=== PATIENT | male | born 1965 | race Caucasian/White ===

== ENCOUNTER 2017-10-14 01:21 | Emergency (ER) | payer OTHER ==
[~2017-10-14] VITALS: Ht 162.6 cm; Wt 99.8 kg
[~2017-10-14 01:21] MED LIST: ROBITUSSIN W/CO10 ML PO; ZITHROMAX Z-PA250 M1 PO
--- NOTE | 2017-10-14 02:33 | ED DYSPNEA/ASTHMA COMPLAINT ---
History of Present Illness General Chief Complaint: General Adult Stated Complaint: "A HEAVY COUGH" Source: patient Exam Limitations: no limitations Vital Signs & Intake/Output Vital Signs & Intake/Output Vital Signs Date Time Temp Pulse Resp B/P B/P Pulse O2 O2 Flow FiO2 Mean Ox Delivery Rate 10/14 0221 98.4 95 20 146/96 96 Room Air Room Air Allergies Coded Allergies: No Known Allergies (11/06/15) Reconcile Medications Albuterol Sulfate (Ventolin Hfa) 90 MCG HFA.AER.AD 2 PUF INH Q4-6 PRN PRN wheeze Amoxicillin/Potassium Clav (Augmentin 875-125 Tablet) 875 MG-125 MG TABLET 1 TAB PO BID bronchitis Azithromycin (Zithromax Z-Dmitry) 250 MG CAP 1 DP PO AD BRONCHITIS/SINUSES 2 the first day followed by 1 for days 2-5 Prednisone 50 MG TABLET 1 TAB PO DAILY wheezing/cough/rhonchi Promethazine/Phenyleph/Codeine (Promethazine Vc-Codeine Syrup) 6.25 MG-5 MG-10 MG/5 ML SYRUP 5-10 ML PO Q6 cough onehundred twenty cc... [id number] Robitussin AC (Guaifenesin-Codeine Syrup) 10 ML UDC 5 ML PO Q6P PRN COUGH Triage Note: 51YO MALE TO TRIAGE W/CO "HEAVY COUGH" SINCE YESTERDAY. STATES HE "GETS INTO COUGHING FITS" HX FLU 3 WEEKS AGO Triage Nurses Notes Reviewed? yes Onset: Gradual Duration: day(s): Timing: recent history Severity: mild, moderate Activities at Onset: none Prior Episodes/Possible Cause: occasional episodes Modifying Factors: Worsens With: other (worse w/ cough). Associated Symptoms: cough HPI: 51 yo gentleman presents with cough w/ yellow phlegm, for the past few days, but worse today. "I could so much it really hurts my body." No fever, chills, abdominal pain, dizziness. He is otherwise well. Past History Travel History Traveled to [place] past 21 day No Medical History Any Pertinent Medical History? see below for history Neurological: NONE EENT: NONE Cardiovascular: hypertension Respiratory: NONE Gastrointestinal: NONE Hepatic: NONE Renal: NONE Musculoskeletal: NONE Psychiatric: NONE Endocrine: NONE Surgical History Surgical History: non-contributory Psychosocial History What is your primary language Uzbek Tobacco Use: Never used Family History Hx Contributory? No Review of Systems Review of Systems Constitutional: Reports: no symptoms. EENTM: Reports: no symptoms. Respiratory: Reports: no symptoms. Cardiovascular: Reports: no symptoms. GI: Reports: no symptoms. Genitourinary: Reports: no symptoms. Musculoskeletal: Reports: no symptoms. Skin: Reports: no symptoms. Neurological/Psychological: Reports: no symptoms. Hematologic/Endocrine: Reports: no symptoms. Immunologic/Allergic: Reports: no symptoms. All Other Systems: Reviewed and Negative Physical Exam Physical Exam General Appearance: well developed/nourished, no apparent distress Head: atraumatic, normal appearance Eyes: Bilateral: normal appearance. Ears, Nose, Throat: normal pharynx, normal ENT inspection Neck: normal inspection, supple, full range of motion Respiratory: rhonchi, symmetrical mild rhonchi Cardiovascular: regular rate/rhythm Gastrointestinal: normal bowel sounds, soft, non-tender, no organomegaly Extremities: normal inspection, normal capillary refill, normal range of motion, no edema Neurologic/Psych: no motor/sensory deficits, awake, alert, oriented x 3 Skin: intact, normal color, warm/dry Core Measures ACS in differential dx? No CVA/TIA Diagnosis No Sepsis Present: No Sepsis Focused Exam Completed? No Progress Differential Diagnosis: asthma, bronchitis vs other. Plan of Care: abx/steroids/albuterol ... close follow up advised. Initial ED EKG: none Departure Departure Disposition: HOME OR SELF CARE Condition: Stable Clinical Impression Primary Impression: Bronchitis Referrals: Unknown (PCP/Family) Departure Forms: Customer Survey General Discharge Information Prescriptions: Current Visit Scripts Amoxicillin/Potassium Clav (Augmentin 875-125 Tablet) 1 TAB PO BID #20 TAB Prednisone 1 TAB PO DAILY #5 TAB Albuterol Sulfate (Ventolin Hfa) 2 PUF INH Q4-6 PRN PRN wheeze #1 INHAL Ref 1 Promethazine/Phenyleph/Codeine (Promethazine Vc-Codeine Syrup) 5-10 ML PO Q6 #120 ML onehundred twenty cc... [id number] Critical Care Note Critical Care Note Critical Care Time: non-applicable
[2017-10-14] MEDS ORDERED: VENTOLIN HFA18 GM INH (02:42)
[2017-10-14] MEDS ORDERED: PREDNISONE50 M1 PO (02:42)
[2017-10-14] MEDS ORDERED: AUGMENTIN 875-1 EACH PO (02:42)
[2017-10-14] MEDS ORDERED: PROMETHAZINE V118 M2 PO (02:42)
[2017-10-14 03:00] VITALS: BP 138/80
== END 2017-10-14 03:13 ==
LOC: ERH 01:21
DX: J40 Bronchitis, not specified as acute or chronic (principal)

== ENCOUNTER 2017-10-17 08:19 | Emergency (ER) | payer OTHER ==
[~2017-10-17] VITALS: Ht 162.6 cm; Wt 99.8 kg
[~2017-10-17 08:19] MED LIST changes: +AUGMENTIN 875-1 EACH PO; +PREDNISONE50 M1 PO; +PROMETHAZINE V118 M2 PO; +VENTOLIN HFA18 GM INH
--- NOTE | 2017-10-17 09:08 | RADIOLOGY REPORT ---
EXAMINATION: XR CHEST CLINICAL INFORMATION: Cough, SOB. COMPARISON: Chest 11/06/2015 TECHNIQUE: 2 views of the chest were obtained. FINDINGS: No significant abnormality is noted involving the heart, lungs, mediastinum, bony thorax or soft tissues. IMPRESSION: Unremarkable chest examination. No change from previous study.
--- NOTE | 2017-10-17 09:14 | ED INFLUENZA/URI COMPLAINT ---
History of Present Illness General Chief Complaint: General Adult Stated Complaint: SHAKEY, DX BRONCHITIS Source: patient, old records Exam Limitations: no limitations Vital Signs & Intake/Output Vital Signs & Intake/Output Vital Signs Date Time Temp Pulse Resp B/P B/P Pulse O2 O2 Flow FiO2 Mean Ox Delivery Rate 10/17 1051 93 10/17 1040 98.0 88 20 159/92 97 Room Air 10/17 0843 95 Room Air Room Air 10/17 0828 98.2 114 20 152/68 97 Room Air Allergies Coded Allergies: No Known Allergies (11/06/15) Reconcile Medications Albuterol Sulfate (Ventolin Hfa) 90 MCG HFA.AER.AD 2 PUF INH Q4-6 PRN PRN wheeze Amoxicillin/Potassium Clav (Augmentin 875-125 Tablet) 875 MG-125 MG TABLET 1 TAB PO BID bronchitis Brompheniramine/Pseudoephed/Dm (Bromfed Dm Cough Syrup) 2 MG-30 MG-10 MG/5 ML SYRUP 5-10 ML PO Q4-6 PRN PRN COUGH Ipratropium/Albuterol Sulfate (Iprat-Albut 0.5-3(2.5) MG/3 Ml) 0.5 MG-3 MG (2.5 MG BASE)/3 ML AMPUL.NEB 1 VIAL INH Q6 PRN WHEEZING Prednisone 50 MG TABLET 1 TAB PO DAILY wheezing/cough/rhonchi Promethazine/Phenyleph/Codeine (Promethazine Vc-Codeine Syrup) 6.25 MG-5 MG-10 MG/5 ML SYRUP 5-10 ML PO Q6 cough onehundred twenty cc... [id number] Triage Note: 51 YEAR OLD MALE STTAES THAT HE WAS TREATED FOR THE FLU 3 WEEKS AGO AND THEN MONDAY WAS SEEN IN ER FOR COUGH PRODUCTIVE OF YELLOW SPUTUM AND L SIDE CP. WAS DX WITH BRONCHITIS AND SENT HOME ON ABT AND COUGH MEDICINE. PT STATES THAT HE FEELS SHAKEY AND IS STILL GETTING L SIDE CP WHEN HE TAKES DEEP BREATH AND COUGHS. AFEBRILE , HR 114 AT TRIAGE. PT TO EKG [facility] Triage Nurses Notes Reviewed? yes Onset: Gradual Duration: week(s): Timing: recent history Severity: moderate HPI: 51yo male with hx of HTN presents to ED complaining of persistent URI symptoms. Patient was seen and evaluated here 4 days ago, at that time he had wheezing and was prescribed Augmentin, prednisone 50 mg, albuterol, cough medication. Patient states that these medication improved his symptoms however today he woke up feeling jittery and lightheaded. Patient states that some of his symptoms have been persistent including his cough. Cough productive of yellow sputum initially and now white sputum. Patient reports bilateral pain with his cough, no chest pain at rest. He also notes dyspnea on exertion or after he finishes his in activity. Patient works at as an [employer] has been exposed to sick patients. 3 weeks ago he had the flu and was treated with Tamiflu. The patient denies fevers, chills, abdominal pain, nausea, vomiting, diarrhea. (Annika eSthi) Past History Travel History Traveled to [place] past 21 day No Medical History Any Pertinent Medical History? see below for history Neurological: NONE EENT: NONE Cardiovascular: hypertension Respiratory: NONE Gastrointestinal: NONE Hepatic: NONE Renal: NONE Musculoskeletal: NONE Psychiatric: NONE Endocrine: NONE Surgical History Surgical History: non-contributory Psychosocial History What is your primary language Setswana Tobacco Use: Never used ETOH Use: denies use Illicit Drug Use: denies illicit drug use Family History Hx Contributory? No (Annika Sethi) Review of Systems Review of Systems Constitutional: Reports: see HPI. EENTM: Reports: see HPI. Respiratory: Reports: see HPI. Cardiovascular: Reports: no symptoms. GI: Reports: no symptoms. Genitourinary: Reports: no symptoms. Musculoskeletal: Reports: no symptoms. Skin: Reports: no symptoms. Neurological/Psychological: Reports: see HPI. Hematologic/Endocrine: Reports: no symptoms. Immunologic/Allergic: Reports: no symptoms. All Other Systems: Reviewed and Negative (Annika Sethi) Physical Exam Physical Exam General Appearance: well developed/nourished, no apparent distress, alert, awake Head: atraumatic, normal appearance Eyes: Bilateral: normal appearance. Ears, Nose, Throat: normal ENT inspection, moist mucous membrane, hearing grossly normal, Tympanic normal, pharynx normal Neck: normal inspection, supple, full range of motion Respiratory: no respiratory distress, mildly diminished breath sounds posterior lung leroy Cardiovascular: regular rate/rhythm Gastrointestinal: normal bowel sounds, soft, non-tender, no organomegaly Back: normal inspection, normal range of motion Extremities: normal inspection, normal range of motion Neurologic/Psych: awake, alert, oriented x 3 Skin: intact, normal color, warm/dry Core Measures Sepsis Present: No Sepsis Focused Exam Completed? No (Summer VILLEDA,Annika Gibbons) Progress Differential Diagnosis: influenza, pneumonia, sinusitis, bronchitis Plan of Care: Orders Procedure Date/time Status LOWER RESPIRATORY CULTURE 10/17 1017 Active TROPONIN LEVEL 10/17 827 Complete COMPREHENSIVE METABOLIC PANEL 10/17 827 Complete CBC WITHOUT DIFFERENTIAL 10/17 827 Complete EKG 10/17 826 Active Laboratory Tests 10/17/17 0903: Anion Gap 15, Estimated GFR > 60, BUN/Creatinine Ratio 24.0, Glucose 136 H, Calcium 9.8, Total Bilirubin 0.3, AST 36, ALT 80 H, Alkaline Phosphatase 67, Troponin I < 0.01, Total Protein 7.4, Albumin 4.3, Globulin 3.1, Albumin/ Globulin Ratio 1.4, CBC w Diff NO MAN DIFF REQ, RBC 5.03, MCV 89.8, MCH 29.9, MCHC 33.3, RDW 13.4, MPV 7.8, Gran % 88.4 H, Lymphocytes % 8.6 L, Monocytes % 3.0, Eosinophils % 0, Basophils % 0, Absolute Granulocytes 10.2 H, Absolute Lymphocytes 1.0 L, Absolute Monocytes 0.3, Absolute Eosinophils 0, Absolute Basophils 0 Microbiology 10/17 933 LOWER RESP: Respiratory Culture - RES 10/17 933 LOWER RESP: Gram Stain - RES Chest x-ray without signs of pneumonia. Patient has stable vital signs here, afebrile, no hypoxia. Patient ambulated without significant oxygen desaturation. Patient states he feels improvement following DuoNeb. He was prescribed a nebulizer machine to go home with. A sputum culture was sent to the lab, patient to follow up with results in 2 days. Patient's labs are within normal limits, EKG in sinus rhythm, troponin negative. He has no chest pain at rest low suspicion for acute coronary syndrome. The patient is nontoxic appearing. The patient agrees with the plan of care. The patient was discussed with Dr. Moncada who agrees with this plan. Diagnostic Imaging: Viewed by Me: Radiology Read. Discussed w/RAD: Radiology Read. CXR Impression: PATIENT: JAQUI HUTCHINSON PRESENT AGE: 51 PATIENT ACCOUNT NO: [id number] : 65 LOCATION: [facility] ORDERING PHYSICIAN: Joey Ramachandran DO SERVICE DATE: 10/17/17 EXAM TYPE: RAD - XRY-CHEST XRAY, TWO VIEWS EXAMINATION: XR CHEST CLINICAL INFORMATION: Cough, SOB. COMPARISON: Chest 11/06/2015 TECHNIQUE: 2 views of the chest were obtained. FINDINGS: No significant abnormality is noted involving the heart, lungs, mediastinum, bony thorax or soft tissues. IMPRESSION: Unremarkable chest examination. No change from previous study. DICTATED BY: Hany Preciado MD DATE/ TIME DICTATED:10/17/17903 SENIOR LINUX UNIX ADMINISTRATOR:ROXANNE DATE/TIME TRANSCRIBED: 10/17/17903 CONFIDENTIAL, DO NOT COPY WITHOUT APPROPRIATE AUTHORIZATION. < Electronically signed in Other Vendor System> SIGNED BY: Hany Preciado MD 907 Initial ED EKG: sinus rhythm @97bpm, LAD, nonspecific ST changes (Summer VILLEDA,Annika Gibbons) Departure Departure Disposition: HOME OR SELF CARE Condition: Stable Clinical Impression Primary Impression: Bronchitis Secondary Impressions: Dyspnea Qualifiers: Dyspnea type: dyspnea on exertion Qualified Code: R06.09 - Other forms of dyspnea Referrals: Shazia ZURITA,Jose A Cruz (PCP/Family) Additional Instructions: Continue steroids and antibiotics as prescribed to. Also continue albuterol inhaler as needed for wheezing or shortness of breath. You were prescribed a nebulizer machine to use as needed for wheezing or shortness of breath. You were also prescribed a cough medication to use while you have persistent symptoms. We will call you if the results of your sputum culture abnormal in 2 days. Return with any worsening symptoms or concerns. Please note that there might be incidental findings in your evaluation that are unrelated to the current emergency department visit. Please notify your primary care doctor about this emergency department visit in order to obtain and review all of the testing performed so that these incidental findings can be monitored as needed. If you had an x-ray performed, please understand that some fractures may not be seen on the initial set of x-rays. If your symptoms persist you might need a repeat set of x-rays to check for such a fracture. If you had a laceration evaluated, please understand that foreign bodies such as glass or wood may not be visible to the naked eye or on plain x-rays. If the wound becomes red, swollen, increasingly more painful or if there is any drainage from the wound, please have it reevaluated by a physician for the possibility of a retained foreign body. If you're unable to follow up as outlined in the discharge instructions please return to the emergency department. Thank you for choosing the Emergency Department for your care. It was a pleasure to serve you today. Departure Forms: Customer Survey General Discharge Information Prescriptions: Current Visit Scripts [NEBULIZER KIT] INH/TAHIR Q6 PRN BRONCHITIS #1 Ipratropium/Albuterol Sulfate (Iprat-Albut 0.5-3(2.5) MG/3 Ml) 1 VIAL INH Q6 PRN WHEEZING #20 Vial Brompheniramine/Pseudoephed/Dm (Bromfed Dm Cough Syrup) 5-10 ML PO Q4-6 PRN PRN COUGH #120 ML (Summer VILLEDA,Annika Gibbons) PA/PRESCHOOL TEACHER ASSISTANT Co-Sign Statement Statement: ED Attending supervision documentation- I saw and evaluated the patient. I have also reviewed all the pertinent lab results and diagnostic results. I agree with the findings and the plan of care as documented in the PA's/PRESCHOOL TEACHER ASSISTANT's documentation. x I have reviewed the ED Record and agree with the PA's/PRESCHOOL TEACHER ASSISTANT's documentation. [] Additions or exceptions (if any) to the PAs/PRESCHOOL TEACHER ASSISTANT's note and plan are summarized below: [] (Coral ZURITA,Ubaldo)
[2017-10-17 09:23] LABS: ABSOLUTE BASOPHIL COUNT 0 /CUMM (0.0-0.2); ABSOLUTE EOSINOPHIL COUNT 0 /CUMM (0.0-0.7); ABSOLUTE GRANULOCYTE CT 10.2 /CUMM (1.4-6.5); ABSOLUTE MONOCYTE COUNT 0.3 /CUMM (0.10-0.60); BASOPHIL % 0 % (0.0-2.0); EOSINOPHIL % 0 % (0-5); HEMATOCRIT 45.1 % (42-52); MEAN CORPUSCULAR HGB 29.9 PG (27.0-31.0); MEAN CORPUSCULAR HGB CONC 33.3 G/DL (33.0-37.0); MEAN CORPUSCULAR VOLUME 89.8 FL (80.0-94.0); MEAN PLATELET VOLUME 7.8 FL (7.4-10.4); PLATELET COUNT 356 /CUMM (130-400); RBC DISTRIBUTION WIDTH 13.4 % (11.5-14.5); RED BLOOD CELL CT 5.03 /CUMM (4.70-6.10); WHITE BLOOD CELL COUNT 11.5 /CUMM (4.8-10.8)
[2017-10-17 09:54] LABS: GRANULOCYTE % 88.4 % (42.2-75.2)
[2017-10-17 10:40] VITALS: BP 159/92
[2017-10-17] MEDS ORDERED: IPRAT-ALBUT 0.5-3 ML INH (11:21)
[2017-10-17] MEDS ORDERED: BROMFED DM COU118 M1 PO (11:21)
[2017-10-17] MEDS ORDERED: [UNRECOGNIZED DRUG - OTHER] INH/SOL (11:21)
== END 2017-10-17 11:20 ==
LOC: ERH 08:19
PROVIDERS: Emergency Medicine
DX: J40 Bronchitis, not specified as acute or chronic (principal); R07.9 Chest pain, unspecified
CPT/HCPCS: 1263; 71046; 87070; 93005; 93010